=== PATIENT | female | born 1955 | race Caucasian/White ===

== ENCOUNTER 2017-10-10 19:56 | Emergency (ER) | payer OTHER ==
[2017-10-10 20:15] VITALS: RESP 18; TEMP 99
[2017-10-10] MEDS ORDERED: KETOROLAC TROMETHAMINE 30 MG/ML SOL IM ONE (20:39)
[2017-10-10] MEDS ORDERED: KETOROLAC TROMETHAMINE 30 MG/ML SOL ONE (20:40)
[2017-10-10] MEDS ORDERED: TDAP VACCINE 0.5 ML SUS IM ONE ×2 (20:40→20:44)
[2017-10-10] MEDS ORDERED: LIDOCAINE HCL 1% MPF SOL ONE (21:11)
[2017-10-10] MEDS ORDERED: DIAZEPAM 5 MG TAB PO ONE (21:37)
[2017-10-10] MEDS ORDERED: DIAZEPAM 5 MG TAB ONE (21:37)
[2017-10-10] MEDS ORDERED: APAP/HYDROCODONE 325/5 TAB PO ONE (21:38)
[2017-10-10] MEDS ORDERED: BACITRACIN 500 U/GM OIN TOP ONE ×2 (21:41)
[2017-10-10 22:07] VITALS: BP 166/93; PULSE 75; O2SAT 96
[2017-10-10] MEDS ORDERED: APAP/HYDROCODONE 325/5 TAB ONE (22:20)
== END 2017-10-10 22:35 | disposition home or self-care (01) | DRG 563 ==
LOC: ED 19:56
DX: S42.252A Displaced fracture of greater tuberosity of left humerus, initial encounter for closed fracture (principal); S61.412A Laceration without foreign body of left hand, initial encounter; W19.XXXA Unspecified fall, initial encounter
CPT/HCPCS: 73020; 73060; 90715; 99285; J1885; A9270-GY; J2001

== ENCOUNTER 2017-11-15 09:09 | Outpatient (CLI) | payer OTHER ==
[2017-10-10 22:07] VITALS: O2SAT 96
== END 2017-11-15 09:10 | disposition home or self-care (01) | DRG 561 ==
LOC: CONVCARE 09:09
PROVIDERS: ATTEND Orthopaedic Surgery
DX: S42.202D Unspecified fracture of upper end of left humerus, subsequent encounter for fracture with routine healing (principal)
CPT/HCPCS: 73030

== ENCOUNTER 2017-12-06 10:57 | Outpatient (CLI) | payer OTHER ==
[2017-10-10 22:07] VITALS: O2SAT 96
== END 2017-12-06 10:58 | disposition home or self-care (01) | DRG 561 ==
LOC: CONVCARE 10:57
PROVIDERS: ATTEND Orthopaedic Surgery
DX: S42.202D Unspecified fracture of upper end of left humerus, subsequent encounter for fracture with routine healing (principal); Z51.89 Encounter for other specified aftercare
CPT/HCPCS: 73030

== ENCOUNTER 2018-01-17 10:48 | Outpatient (CLI) | payer OTHER ==
[2017-10-10 22:07] VITALS: O2SAT 96
== END 2018-01-17 10:49 | disposition home or self-care (01) | DRG 561 ==
LOC: CONVCARE 10:48
PROVIDERS: ATTEND Orthopaedic Surgery
DX: S42.292D Other displaced fracture of upper end of left humerus, subsequent encounter for fracture with routine healing (principal)
CPT/HCPCS: 73030

== ENCOUNTER 2018-04-11 13:11 | Outpatient (CLI) | payer OTHER ==
[2017-10-10 22:07] VITALS: O2SAT 96
== END 2018-04-11 13:12 | disposition home or self-care (01) | DRG 561 ==
LOC: CONVCARE 13:11
PROVIDERS: ATTEND Orthopaedic Surgery
DX: S42.202D Unspecified fracture of upper end of left humerus, subsequent encounter for fracture with routine healing (principal)
CPT/HCPCS: 73030